=== PATIENT | male | born 1955 | race Caucasian/White ===

== ENCOUNTER 2024-07-20 16:25 | Emergency (ER) | payer OTHER | END 2024-07-20 17:40 | LOC: CSHERS 16:25 → EEVIPCON 16:25 → CSHERS 17:40 | DX: S09.90XA Unspecified injury of head, initial encounter (principal); I10 Essential (primary) hypertension; E78.5 Hyperlipidemia, unspecified; Z79.899 Other long term (current) drug therapy; W01.0XXA Fall on same level from slipping, tripping and stumbling without subsequent striking against object, initial encounter | CPT/HCPCS: 70450; 93005 ==

== ENCOUNTER 2024-07-28 15:36 | Emergency (ER) | payer OTHER | END 2024-07-28 15:50 | disposition home or self-care (01) | LOC: EEVIPCON 15:36 → CSHERS 15:36 | DX: I87.8 Other specified disorders of veins (principal); E78.5 Hyperlipidemia, unspecified; I10 Essential (primary) hypertension; E11.9 Type 2 diabetes mellitus without complications; Z86.73 Personal history of transient ischemic attack (TIA), and cerebral infarction without residual deficits; Z87.891 Personal history of nicotine dependence; Z79.899 Other long term (current) drug therapy ==